=== PATIENT | male | born 1965 | race Caucasian/White ===

== ENCOUNTER 2019-03-02 07:20 | Day surgery (SDC) | payer MEDICAID ==
[2019-02-25 10:11] LABS: BASOPHILS # (AUTO) 0.1 X10'3 (0-0.2); BASOPHILS % (AUTO) 1.2 % (0-1); EOSINOPHILS # (AUTO) 0.1 X10'3 (0-0.9); EOSINOPHILS % (AUTO) 1.5 % (0-6); LYMPHOCYTES # (AUTO) 2.8 X10'3 (1.1-4.8); LYMPHOCYTES % (AUTO) 30.6 % (21-51); MEAN CORPUSCULAR HEMOGLOBIN 30.1 PG (27.0-31.0); MEAN CORPUSCULAR VOLUME 88.5 FL (78-98); MEAN PLATELET VOLUME 7.9 FL (7.4-10.4); MONOCYTES # (AUTO) 0.8 X10'3 (0-0.9); MONOCYTES % (AUTO) 9.3 % (2-12); NEUTROPHILS # (AUTO) 5.2 X10'3 (1.8-7.7); NEUTROPHILS % (AUTO) 57.4 % (42-75); PRE OP HEMATOCRIT 43.3 % (42.0-52.0); PRE OP HEMOGLOBIN 14.7 g/dL (14.0-17.9); PRE OP PLATELET COUNT 292 X10'3 (140-440); RED CELL DISTRIBUTION WIDTH 14.4 % (11.5-14.5)
[2019-02-25 10:30] LABS: ALBUMIN 3.6 G/DL (3.4-5.0); ALBUMIN/GLOBULIN RATIO 0.9 (1.1-1.5); ALKALINE PHOSPHATASE 71 IU/L (46-116); BLOOD UREA NITROGEN 14 MG/DL (7-18); BUN/CREATININE RATIO 16.7 (5.4-32.0); CHLORIDE 106 MMOL/L (99-107); CREATININE 0.84 MG/DL (0.60-1.10); PRE OP ALT 25 U/L (30-65); PRE OP ANION GAP 8 (8-16); PRE OP AST 18 U/L (10-37); PRE OP BILIRUB, TOTAL 0.4 MG/DL (0.0-1.0); PRE OP GLUCOSE 79 MG/DL (70-104); PRE OP POTASSIUM 4.4 MMOL/L (3.4-5.1); PRE OP SODIUM 140 MMOL/L (135-145); TOTAL CARBON DIOXIDE 26.2 MMOL/L (24-32); TOTAL PROTEIN 7.6 G/DL (6.4-8.2); eGFR > 90 ML/MIN
[~2019-03-02] VITALS: Ht 172.7 cm; Wt 67.1 kg
[2019-03-02] VITALS (11 sets, daily range): BP systolic 104–133; BP diastolic 55–78
[~2019-03-02 07:20] MED LIST: cefazolin/dext.iso 2gm/100ml 100 ML IV ONE; famotidine 10mg tablet PO ONE; ringers solution, lacted 1,000 ML IV SCH
[2019-03-02] MEDS ORDERED: ringers solution, lacted 1,000 ML IV SCH (08:47)
[2019-03-02] MEDS ORDERED: proCHLORperazine 10 MG/2 ml inj IV PRN (08:50)
[2019-03-02] MEDS ORDERED: morphine 4 MG/ML inj SYRINge IV PRN ×2 (08:50)
[2019-03-02] MEDS ORDERED: ondansetron/PF 4mg/2ml inj IV PRN (08:50)
[2019-03-02] MEDS ORDERED: meperidine/PF 25mg/ml syringe IV PRN ×3 (08:50)
[2019-03-02] MEDS ORDERED: ondansetron/PF 4mg/2ml inj ONE (09:45)
[2019-03-02] MEDS ORDERED: sevoflurane 250ml liquid IH ONE (09:45)
[2019-03-02] MEDS ORDERED: fentaNYL/PF 50MCG/1 ML 2ML syringe ONE (09:54)
[2019-03-02] MEDS ORDERED: midazolam 2 mg/2 ml injection ONE (09:55)
[2019-03-02] MEDS ORDERED: ceFAZolin 1000mg inj ONE (09:57)
[2019-03-02] MEDS ORDERED: BUPIVACAINE liposomal/PF 13.3 MG/ML vial IM ONE (09:58)
[2019-03-02] MEDS ORDERED: BUPIVAcaine/PF 2.5 mg/ml (0.25%) 30ml vial ONE (09:58)
[2019-03-02] MEDS ORDERED: dexamethasone sod phosphate 4mg/ml inj. ONE (10:06)
[2019-03-02] MEDS ORDERED: propofol inj 20 ML IV ONE (10:29)
[2019-03-02] MEDS ORDERED: LIDOcaine 2% (20mg/ml) 5ml vial ONE (10:29)
--- NOTE | 2019-03-02 10:39 | NUR ---
Received from OR via , accompanied by Anesthesiologist DR. RICHTER and report given by Anesthesiolgist. VSS CHARTED, LMA IN PLACE, 02 SAT 100 % 10L MASK, ABD DRESSING CDI. PIV TO RIGHT FA INFUSING LR,. WILL CONTINUE TO MONITOR
--- NOTE | 2019-03-02 12:04 | NUR ---
I HAVE REVIEWED D/C INSTRUCTIONS WITH PATIENT AND FAMILY AND THEY HAVE VERBALIZED UNDERSTANDING. PATIENT D/C HOME WITH ALL BELONGINGS AND FAMILY GAVE TRANSPORT HOME.
== END 2019-03-02 11:59 | disposition home or self-care (01) ==
LOC: PAS 07:20
PROVIDERS: ATTEND Surgery
DX: R19.00 Intra-abdominal and pelvic swelling, mass and lump, unspecified site (principal); D17.1 Benign lipomatous neoplasm of skin and subcutaneous tissue of trunk; J44.9 Chronic obstructive pulmonary disease, unspecified; F17.210 Nicotine dependence, cigarettes, uncomplicated; Z88.8 Allergy status to other drugs, medicaments and biological substances; Z79.899 Other long term (current) drug therapy; Z98.890 Other specified postprocedural states
CPT/HCPCS: 22903; 36415; 80053; 82948; 85025; 93005; C9290; J0690; J1100; J2001; J2175; J2250; J2704; J3010; J3490; A4215; A4618; A6449; A7000; J2405; J7120